=== PATIENT | male | born 1995 | race African-American/Black ===

== ENCOUNTER 2017-12-10 21:03 | Emergency (ER) | payer OTHER ==
[~2017-12-10] VITALS: Ht 175.3 cm; Wt 76.1 kg
[2017-12-10 21:06] VITALS: TEMP 36.6; Ht 175.3 cm; Wt 76.1 kg
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
[2017-12-10 23:40] VITALS: BP 130/70; PULSE 71; O2SAT 98
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
== END 2017-12-10 23:41 | disposition home or self-care (01) ==
LOC: C.EDC 21:05
DX: S16.1XXA Strain of muscle, fascia and tendon at neck level, initial encounter (principal); X50.1XXA Overexertion from prolonged static or awkward postures, initial encounter; Y93.72 Activity, wrestling